=== PATIENT | female | born 2005 | race Caucasian/White ===

== ENCOUNTER 2024-12-27 11:35 | Outpatient (CLI) | payer OTHER, SELFPAY ==
--- NOTE | 2024-12-27 12:02 | DI.RAD_ITS ---
Exam(s) XR CHEST 2V PA LATERAL EXAM: XR CHEST 2V PA LATERAL CLINICAL HISTORY: FIDEL, J06.9. TECHNIQUE: 2D digital imaging was performed. COMPARISON: No exams were available for comparison FINDINGS: 2 views: Heart size is normal. The mediastinum is not widened. Right lung is clear but there is significant infiltrate in the left lower lobe retrocardiac region left infrahilar region. There are no pleural effusions. IMPRESSION: Significant left lower lobe infiltrate. No obvious pleural effusions. Doctor's office notified DATA REPOSITORY: RADIATION DOSE DELIVERED:
== END 2024-12-27 11:55 ==
PROVIDERS: Visit Provider Physician Assistant Medical
DX: J06.9 Acute upper respiratory infection, unspecified (principal)
CPT/HCPCS: 71046